=== PATIENT | female | born 1975 | race Asian ===

== ENCOUNTER 2017-03-08 08:33 | Emergency (ER) | payer BC ==
[~2017-03-08] VITALS: Ht 149.9 cm; Wt 61.0 kg
[~2017-03-08 08:33] MED LIST: LOSA25TA12 PO
[2017-03-08] MEDS ORDERED: LOSARTAN POTASSIUM 25 MG TABLET PO ONE (09:30)
[2017-03-08] MEDS ORDERED: ONDANSETRON HCL 4MG/2ML VIAL IV ONE (09:30)
[2017-03-08 09:31] LABS: BASOPHILS % 0.7 % (0.0-2.0); EOSINOPHILS % 0.7 % (0.0-5.0); HEMATOCRIT. 37.9 % (36.0-48.0); HEMOGLOBIN. 12.7 g/dL (12.0-16.0); LYMPHOCYTES % 22.8 % (20.0-50.0); MEAN CORPUSCULAR HEMOGLOBIN 29.3 pg (28.0-32.0); MEAN PLATELET VOLUME 6.7 fl (7.4-10.4); MONOCYTES % 10.5 % (2.0-8.0); NEUTROPHILS % 65.3 % (40.0-76.0); PLATELET 345 x1000/uL (130-400); RED BLOOD CELL COUNT 4.35 mill/uL (4.2-5.4); RED CELL DISTRIBUTION WIDTH 13.5 % (11.6-14.6)
[2017-03-08 09:40] LABS: CARBON DIOXIDE 27 mEq/L (21-32); CHLORIDE 106 mEq/L (98-107)
[2017-03-08 09:43] LABS: PROTHROMBIN TIME 10.5 sec
[2017-03-08 09:47] LABS: CREATINE KINASE 139 IU/L (26-192); CREATINE KINASE MB FRACTION 1.7 ng/mL (0.5-3.6); TROPONIN I < 0.02 ng/mL (0.00-0.04)
[2017-03-08 10:18] LABS: CLARITY URINE BLOODY (CLEAR); COLOR URINE BLOODY (YELLOW); GLUCOSE URINE TRACE (NEGATIVE); KETONES URINE 2+ (NEGATIVE); LEUKOCYTE ESTERASE URINE 3+ (NEGATIVE); NITRITE URINE POSITIVE (NEGATIVE); OCCULT BLOOD URINE 3+ (NEGATIVE); PROTEIN URINE 3+ (NEGATIVE); SPECIFIC GRAVITY URINE 1.026 (1.005-1.030)
[2017-03-08] MEDS ORDERED: CEFTRIAXONE 1 G PREMIX 50 ML IV ONE (11:15)
[2017-03-08 12:07] VITALS: BP 119/74
== END 2017-03-08 13:57 | disposition home or self-care (01) ==
LOC: ER 10:09
DX: I10 Essential (primary) hypertension (principal); N39.0 Urinary tract infection, site not specified; D25.9 Leiomyoma of uterus, unspecified; Z91.14 Patient's other noncompliance with medication regimen; Z90.49 Acquired absence of other specified parts of digestive tract; Z88.6 Allergy status to analgesic agent; Z79.899 Other long term (current) drug therapy; Z86.2 Personal history of diseases of the blood and blood-forming organs and certain disorders involving the immune mechanism
CPT/HCPCS: 36415; 71010; 80053; 81001; 81025; 82550; 82553; 83690; 83880; 84484; 85025; 85610; 93005; 96365; 96375; 99285; J0696; J2405; Z7610

== ENCOUNTER 2017-08-07 01:12 | Inpatient (IN) | payer BC ==
[~2017-08-07] VITALS: Ht 149.9 cm; Wt 69.6 kg
[2017-08-07] MEDS ORDERED: SODIUM CHLORIDE 0.9% 1,000 ML IV ONE (02:03)
[2017-08-07] MEDS ORDERED: ONDANSETRON HCL 4MG/2ML VIAL IV STA (02:03)
[2017-08-07] MEDS ORDERED: KETOROLAC 30MG/ML VIAL IV ONE (02:15)
[2017-08-07 02:25] LABS: HEMATOCRIT. 32.7 % (36.0-48.0); HEMOGLOBIN. 10.9 g/dL (12.0-16.0); MEAN CORPUSCULAR HEMOGLOBIN 28.1 pg (28.0-32.0); MEAN CORPUSCULAR VOLUME 84.6 fL (81.0-99.0); PLATELET 434 x1000/uL (130-400); RED BLOOD CELL COUNT 3.86 mill/uL (4.2-5.4); RED CELL DISTRIBUTION WIDTH 14.4 % (11.6-14.6)
[2017-08-07 02:26] LABS: CHLORIDE 98 mEq/L (98-107)
[2017-08-07 02:31] LABS: CLARITY URINE TURBID (CLEAR); COLOR URINE RED (YELLOW); GLUCOSE URINE NEGATIVE (NEGATIVE); KETONES URINE 2+ (NEGATIVE); LEUKOCYTE ESTERASE URINE 2+ (NEGATIVE); NITRITE URINE POSITIVE (NEGATIVE); OCCULT BLOOD URINE 3+ (NEGATIVE); PROTEIN URINE 2+ (NEGATIVE); SPECIFIC GRAVITY URINE 1.027 (1.005-1.030); UROBILINOGEN URINE 0.2 E.U./dL (0.2-1.0)
[2017-08-07 02:34] LABS: CARBON DIOXIDE 24 mEq/L (21-32)
[2017-08-07 03:12] LABS: PLATELET ESTIMATE INCREASED
[2017-08-07] MEDS ORDERED: METRONIDAZOLE 500 MG PREMIX 100 ML IV ONE (06:30)
[2017-08-07] MEDS ORDERED: LEVOFLOXACIN 750MG PREMIX 150 ML IV ONE (06:30)
[2017-08-07] MEDS ORDERED: CEFTRIAXONE 1 G PREMIX 50 ML IV ONE (06:30)
[2017-08-07 08:00] VITALS: BP 125/80
[2017-08-07] MEDS ORDERED: DIPHENHYDRAMINE 50MG/ML VIAL IV PRN (08:45)
[2017-08-07] MEDS ORDERED: IPRATROPIUM/ALBUTEROL 0.5-3(2.5)MG/3ML NEB INH PRN (08:45)
[2017-08-07] MEDS ORDERED: GUAIFENESIN 200MG/10ML SUGAR FREE UDC PO PRN (08:45)
[2017-08-07] MEDS ORDERED: LORAZEPAM 0.5MG TABLET PO PRN (08:45)
[2017-08-07] MEDS ORDERED: HYDROCODONE/APAP 7.5/325MG 1 TAB TABLET PO PRN (08:45)
[2017-08-07] MEDS ORDERED: DOCUSATE SODIUM 100MG CAPSULE PO PRN (08:45)
[2017-08-07] MEDS ORDERED: HYDROCODONE/ACETAMINOPHEN 5/325MG TABLET PO PRN (08:45)
[2017-08-07] MEDS ORDERED: CLONIDINE 0.1MG TABLET PO PRN (08:45)
[2017-08-07] MEDS ORDERED: MAGNESIUM/ALUMINUM HYDROXIDE/SIMETHICONE 30ML UDC PO PRN (08:45)
[2017-08-07 09:34] VITALS: BP 125/72
[2017-08-07] MEDS ORDERED: AMLO10TA4 PO (09:47)
[2017-08-07] MEDS ORDERED: AMLODIPINE 10MG TABLET PO PRN ×2 (10:00→10:45)
[2017-08-07 10:16] LABS: PHOSPHORUS 2.7 mg/dL (2.5-4.9)
[2017-08-07] MEDS: DEXT 5%/0.45% NACL KCL 10MEQ/L 1,000 ML IV SCH ×2 (11:01→23:30)
[2017-08-07] MEDS: AMLODIPINE 10MG TABLET PO SCH (11:24)
[2017-08-07 12:02] VITALS: BP 125/71
[2017-08-07] MEDS ORDERED: IBUPROFEN 400MG TABLET PO PRN (12:50)
[2017-08-07] MEDS ORDERED: OMEPRAZOLE 20MG CAPSULE EXTENDED RELEASE PO SCH (12:50)
[2017-08-07] MEDS: ONDANSETRON HCL 4MG/2ML VIAL IV PRN ×2 (13:51→19:37)
[2017-08-07 16:14] VITALS: BP 120/67
[2017-08-07 16:15] VITALS: BP 118/73
[2017-08-07] MEDS: AMPICILLIN 1,000 MG in SODIUM CHLORIDE 0.9% 50 ML IV SCH ×2 (16:38→20:51)
[2017-08-07] MEDS: METRONIDAZOLE 500 MG PREMIX 100 ML IV SCH (18:10)
[2017-08-07 20:00] VITALS: BP_SYST 122; BP_SYST 133; BP_DIAS 67; BP_DIAS 70
[2017-08-07] MEDS: ACETAMINOPHEN 650MG SUPP PR PRN (20:29)
[2017-08-07] MEDS: KETOROLAC 30MG/ML VIAL IV PRN (20:30)
[2017-08-07] MEDS: METOCLOPRAMIDE HCL 10MG/2ML VIAL IV PRN (22:06)
[2017-08-08] VITALS (7 sets, daily range): BP systolic 109–144; BP diastolic 49–69
[2017-08-08] MEDS: AMPICILLIN 1,000 MG in SODIUM CHLORIDE 0.9% 50 ML IV SCH ×4 (03:51→21:05)
[2017-08-08] MEDS: CEFTRIAXONE 1 G PREMIX 50 ML IV SCH (06:15)
[2017-08-08] MEDS: METRONIDAZOLE 500 MG PREMIX 100 ML IV SCH ×2 (06:57→18:17)
[2017-08-08] MEDS: ENOXAPARIN 40MG/0.4ML SYR SUBCUT SCH (09:00)
[2017-08-08] MEDS: AMLODIPINE 10MG TABLET PO SCH (09:00)
[2017-08-08] MEDS: PANTOPRAZOLE SODIUM 40 MG/VIAL IV SCH (09:36)
[2017-08-08] MEDS: DEXT 5%/0.45% NACL KCL 10MEQ/L 1,000 ML IV SCH ×2 (09:37→18:18)
[2017-08-08 10:02] LABS: BASOPHILS % 0.2 % (0.0-2.0); EOSINOPHILS % 0.5 % (0.0-5.0); HEMATOCRIT. 26.3 % (36.0-48.0); HEMOGLOBIN. 8.4 g/dL (12.0-16.0); LYMPHOCYTES % 8.5 % (20.0-50.0); MEAN CORPUSCULAR HEMOGLOBIN 27.8 pg (28.0-32.0); MEAN CORPUSCULAR VOLUME 86.6 fL (81.0-99.0); MEAN PLATELET VOLUME 7.5 fl (7.4-10.4); MONOCYTES % 8.5 % (2.0-8.0); NEUTROPHILS % 82.3 % (40.0-76.0); PLATELET 339 x1000/uL (130-400); RED BLOOD CELL COUNT 3.04 mill/uL (4.2-5.4); RED CELL DISTRIBUTION WIDTH 14.1 % (11.6-14.6)
[2017-08-08 11:05] LABS: CHLORIDE 105 mEq/L (98-107)
[2017-08-08 11:20] LABS: CARBON DIOXIDE 24 mEq/L (21-32)
[2017-08-08] MEDS: METOCLOPRAMIDE HCL 10MG/2ML VIAL IV PRN ×2 (12:08→23:19)
[2017-08-08] MEDS: KETOROLAC 30MG/ML VIAL IV PRN ×2 (12:09→23:20)
[2017-08-08 13:11] LABS: CLARITY URINE CLEAR (CLEAR); COLOR URINE ORANGE (YELLOW); GLUCOSE URINE NEGATIVE (NEGATIVE); KETONES URINE NEGATIVE (NEGATIVE); LEUKOCYTE ESTERASE URINE TRACE (NEGATIVE); NITRITE URINE POSITIVE (NEGATIVE); OCCULT BLOOD URINE 1+ (NEGATIVE); PH URINE 5.5 (4.5-8.0); PROTEIN URINE 1+ (NEGATIVE); SPECIFIC GRAVITY URINE 1.033 (1.005-1.030)
[2017-08-08] MEDS: ACETAMINOPHEN 650MG SUPP PR PRN (23:28)
[2017-08-09] VITALS (7 sets, daily range): BP systolic 110–147; BP diastolic 53–82
[2017-08-09] MEDS: AMPICILLIN 1,000 MG in SODIUM CHLORIDE 0.9% 50 ML IV SCH ×4 (03:28→20:58)
[2017-08-09] MEDS: DEXT 5%/0.45% NACL KCL 10MEQ/L 1,000 ML IV SCH ×2 (03:30→12:22)
[2017-08-09] MEDS: CEFTRIAXONE 1 G PREMIX 50 ML IV SCH (05:11)
[2017-08-09] MEDS: METRONIDAZOLE 500 MG PREMIX 100 ML IV SCH ×2 (06:13→17:00)
[2017-08-09 06:32] LABS: BASOPHILS % 0.1 % (0.0-2.0); EOSINOPHILS % 0.8 % (0.0-5.0); HEMOGLOBIN. 8.5 g/dL (12.0-16.0); LYMPHOCYTES % 11.1 % (20.0-50.0); MEAN CORPUSCULAR VOLUME 85.4 fL (81.0-99.0); MEAN PLATELET VOLUME 7.7 fl (7.4-10.4); PLATELET 372 x1000/uL (130-400); RED BLOOD CELL COUNT 3.05 mill/uL (4.2-5.4); RED CELL DISTRIBUTION WIDTH 14.4 % (11.6-14.6)
[2017-08-09 08:18] LABS: CARBON DIOXIDE 25 mEq/L (21-32); CHLORIDE 107 mEq/L (98-107)
[2017-08-09] MEDS: ENOXAPARIN 40MG/0.4ML SYR SUBCUT SCH (08:21)
[2017-08-09] MEDS: PANTOPRAZOLE SODIUM 40 MG/VIAL IV SCH (08:22)
[2017-08-09] MEDS: AMLODIPINE 10MG TABLET PO SCH (08:22)
[2017-08-09] MEDS: ACETAMINOPHEN 325MG TABLET PO PRN (15:18)
[2017-08-09] MEDS: METOCLOPRAMIDE HCL 10MG/2ML VIAL IV PRN (15:19)
[2017-08-09] MEDS: KETOROLAC 30MG/ML VIAL IV PRN (15:19)
[2017-08-09] MEDS: DEXT 5%/0.45% NACL KCL 20MEQ/L 1,000 ML IV SCH (20:58)
[2017-08-10] VITALS (8 sets, daily range): BP systolic 136–157; BP diastolic 74–88
[2017-08-10] MEDS: AMPICILLIN 1,000 MG in SODIUM CHLORIDE 0.9% 50 ML IV SCH ×2 (03:32→09:18)
[2017-08-10] MEDS: ACETAMINOPHEN 325MG TABLET PO PRN ×2 (03:49→12:42)
[2017-08-10] MEDS: CEFTRIAXONE 1 G PREMIX 50 ML IV SCH (05:27)
[2017-08-10] MEDS: METRONIDAZOLE 500 MG PREMIX 100 ML IV SCH ×2 (06:12→19:16)
[2017-08-10 06:46] LABS: BASOPHILS % 0.1 % (0.0-2.0); EOSINOPHILS % 0.9 % (0.0-5.0); HEMATOCRIT. 23.8 % (36.0-48.0); HEMOGLOBIN. 7.9 g/dL (12.0-16.0); LYMPHOCYTES % 10.4 % (20.0-50.0); MEAN CORPUSCULAR HEMOGLOBIN 28.3 pg (28.0-32.0); MEAN CORPUSCULAR VOLUME 85.3 fL (81.0-99.0); MEAN PLATELET VOLUME 7.5 fl (7.4-10.4); MONOCYTES % 8.7 % (2.0-8.0); NEUTROPHILS % 79.9 % (40.0-76.0); PLATELET 350 x1000/uL (130-400); RED BLOOD CELL COUNT 2.79 mill/uL (4.2-5.4); RED CELL DISTRIBUTION WIDTH 14.4 % (11.6-14.6)
[2017-08-10 07:38] LABS: CARBON DIOXIDE 24 mEq/L (21-32); CHLORIDE 104 mEq/L (98-107)
[2017-08-10] MEDS: ENOXAPARIN 40MG/0.4ML SYR SUBCUT SCH (09:00)
[2017-08-10] MEDS: AMLODIPINE 10MG TABLET PO SCH (09:00)
[2017-08-10] MEDS: PANTOPRAZOLE SODIUM 40 MG/VIAL IV SCH (09:18)
[2017-08-10] MEDS: DEXT 5%/0.45% NACL KCL 20MEQ/L 1,000 ML IV SCH ×2 (09:19→21:10)
[2017-08-11] VITALS (8 sets, daily range): BP systolic 120–161; BP diastolic 69–87
[2017-08-11] MEDS: DEXT 5%/0.45% NACL KCL 20MEQ/L 1,000 ML IV SCH (03:00)
[2017-08-11 05:58] LABS: HEMATOCRIT. 28.5 % (36.0-48.0); MEAN CORPUSCULAR HEMOGLOBIN 27.9 pg (28.0-32.0); MEAN CORPUSCULAR VOLUME 84.8 fL (81.0-99.0); PLATELET 422 x1000/uL (130-400); RED BLOOD CELL COUNT 3.36 mill/uL (4.2-5.4); RED CELL DISTRIBUTION WIDTH 14.6 % (11.6-14.6)
[2017-08-11 06:25] LABS: CHLORIDE 103 mEq/L (98-107)
[2017-08-11] MEDS: CEFTRIAXONE 1 G PREMIX 50 ML IV SCH (06:28)
[2017-08-11 06:37] LABS: CARBON DIOXIDE 25 mEq/L (21-32)
[2017-08-11 06:42] LABS: HEMOGLOBIN. 9.4 g/dL (12.0-16.0)
[2017-08-11] MEDS: METRONIDAZOLE 500 MG PREMIX 100 ML IV SCH ×2 (07:10→17:15)
[2017-08-11] MEDS: ENOXAPARIN 40MG/0.4ML SYR SUBCUT SCH (09:00)
[2017-08-11] MEDS: AMLODIPINE 10MG TABLET PO SCH (09:03)
[2017-08-11] MEDS: PANTOPRAZOLE SODIUM 40 MG/VIAL IV SCH (09:03)
[2017-08-11 17:53] LABS: PLATELET ESTIMATE SLIGHTLY INCREASED
[2017-08-11] MEDS: ACETAMINOPHEN 325MG TABLET PO PRN (23:51)
[2017-08-12] VITALS (7 sets, daily range): BP systolic 132–176; BP diastolic 72–92
[2017-08-12 04:16] LABS: CHLAMYDIA TRACHOMATIS NAA Negative (Negative); NEISSERIA GONORRHOEAE NAA Negative (Negative)
[2017-08-12] MEDS: CEFTRIAXONE 1 G PREMIX 50 ML IV SCH (05:38)
[2017-08-12] MEDS: METRONIDAZOLE 500 MG PREMIX 100 ML IV SCH ×2 (06:19→18:21)
[2017-08-12 06:42] LABS: BASOPHILS % 0.3 % (0.0-2.0); EOSINOPHILS % 1.4 % (0.0-5.0); HEMATOCRIT. 29.7 % (36.0-48.0); HEMOGLOBIN. 9.6 g/dL (12.0-16.0); LYMPHOCYTES % 13.8 % (20.0-50.0); MEAN CORPUSCULAR HEMOGLOBIN 27.7 pg (28.0-32.0); MEAN CORPUSCULAR VOLUME 85.4 fL (81.0-99.0); MEAN PLATELET VOLUME 7.5 fl (7.4-10.4); MONOCYTES % 9.9 % (2.0-8.0); NEUTROPHILS % 74.6 % (40.0-76.0); PLATELET 435 x1000/uL (130-400); RED BLOOD CELL COUNT 3.48 mill/uL (4.2-5.4); RED CELL DISTRIBUTION WIDTH 14.8 % (11.6-14.6)
[2017-08-12 07:58] LABS: CARBON DIOXIDE 26 mEq/L (21-32); CHLORIDE 103 mEq/L (98-107); PHOSPHORUS 3.6 mg/dL (2.5-4.9)
[2017-08-12] MEDS: PANTOPRAZOLE SODIUM 40 MG/VIAL IV SCH (09:14)
[2017-08-12] MEDS: AMLODIPINE 10MG TABLET PO SCH (09:17)
[2017-08-12] MEDS ORDERED: POTASSIUM CHLORIDE 20MEQ TABLET SR PO SCH (13:30)
[2017-08-13] VITALS: BP 128/80
[2017-08-13 04:00] VITALS: BP 124/77
[2017-08-13 06:20] LABS: BASOPHILS % 0.4 % (0.0-2.0); EOSINOPHILS % 1.4 % (0.0-5.0); HEMATOCRIT. 32.2 % (36.0-48.0); HEMOGLOBIN. 10.4 g/dL (12.0-16.0); MEAN CORPUSCULAR HEMOGLOBIN 27.8 pg (28.0-32.0); MEAN PLATELET VOLUME 7.3 fl (7.4-10.4); MONOCYTES % 5.9 % (2.0-8.0); NEUTROPHILS % 75.3 % (40.0-76.0); PLATELET 572 x1000/uL (130-400); RED BLOOD CELL COUNT 3.74 mill/uL (4.2-5.4)
[2017-08-13] MEDS: CEFTRIAXONE 1 G PREMIX 50 ML IV SCH (06:26)
[2017-08-13] MEDS: METRONIDAZOLE 500 MG PREMIX 100 ML IV SCH (07:04)
[2017-08-13 07:14] LABS: CHLORIDE 102 mEq/L (98-107)
[2017-08-13 07:21] LABS: CARBON DIOXIDE 26 mEq/L (21-32)
[2017-08-13 08:00] VITALS: BP 142/73
[2017-08-13] MEDS: AMLODIPINE 10MG TABLET PO SCH (09:56)
[2017-08-13] MEDS: PANTOPRAZOLE SODIUM 40 MG/VIAL IV SCH (09:56)
[2017-08-13 12:00] VITALS: BP 135/65
[2017-08-13 16:00] VITALS: BP 127/70
[2017-08-13] MEDS: PIPERACILLIN/TAZOBACTAM 3.375 G in DEXT 5% WATER 100 ML IV SCH ×2 (18:13→23:40)
[2017-08-13 20:00] VITALS: BP 139/74
[2017-08-14] VITALS: BP 132/84
[2017-08-14 04:00] VITALS: BP 139/67
[2017-08-14] MEDS: PIPERACILLIN/TAZOBACTAM 3.375 G in DEXT 5% WATER 100 ML IV SCH ×2 (06:51→12:22)
[2017-08-14 07:34] LABS: BASOPHILS % 0.4 % (0.0-2.0); EOSINOPHILS % 1.3 % (0.0-5.0); HEMATOCRIT. 30.5 % (36.0-48.0); HEMOGLOBIN. 10.1 g/dL (12.0-16.0); LYMPHOCYTES % 13.5 % (20.0-50.0); MEAN CORPUSCULAR HEMOGLOBIN 28.1 pg (28.0-32.0); NEUTROPHILS % 76.8 % (40.0-76.0); PLATELET 570 x1000/uL (130-400); RED BLOOD CELL COUNT 3.59 mill/uL (4.2-5.4); RED CELL DISTRIBUTION WIDTH 14.8 % (11.6-14.6)
[2017-08-14 07:58] VITALS: BP 125/75
[2017-08-14 08:39] LABS: CARBON DIOXIDE 25 mEq/L (21-32); CHLORIDE 104 mEq/L (98-107)
[2017-08-14] MEDS ORDERED: FAMOTIDINE 20MG TABLET PO SCH (09:00)
[2017-08-14] MEDS: AMLODIPINE 10MG TABLET PO SCH (09:22)
[2017-08-14 12:23] VITALS: BP 113/69
[2017-08-14 14:59] VITALS: BP 18/113
== END 2017-08-14 15:35 | disposition home or self-care (01) | DRG 872 ==
LOC: ER 01:12 → 5WST 06:26 → ENRESERV 07:46
PROVIDERS: ADMIT Family Medicine Adult Medicine; ATTEND Family Medicine Adult Medicine
PROC: 30233N1 Transfusion of Nonautologous Red Blood Cells into Peripheral Vein, Percutaneous Approach (ICD-10-PCS; principal; 2017-08-10)
DX: A41.9 Sepsis, unspecified organism (principal); D68.59 Other primary thrombophilia; K76.0 Fatty (change of) liver, not elsewhere classified; N39.0 Urinary tract infection, site not specified; D64.9 Anemia, unspecified; N92.0 Excessive and frequent menstruation with regular cycle; E87.6 Hypokalemia; N80.9 Endometriosis, unspecified; I10 Essential (primary) hypertension; N92.1 Excessive and frequent menstruation with irregular cycle; B96.20 Unspecified Escherichia coli [E. coli] as the cause of diseases classified elsewhere; E28.2 Polycystic ovarian syndrome; N70.93 Salpingitis and oophoritis, unspecified; D25.9 Leiomyoma of uterus, unspecified; N70.11 Chronic salpingitis; Z88.8 Allergy status to other drugs, medicaments and biological substances; Z90.49 Acquired absence of other specified parts of digestive tract
CPT/HCPCS: 36415; 74177; 76830; 76856; 80048; 80053; 80076; 81001; 81025; 83605; 83690; 83735; 84100; 84443; 85007; 85025; 85027; 86850; 86900; 86920; 87040; 87077; 87086; 87186; 87491; 87591; 96361; 96365; 96366; 96375; 99285; C9113; J0290; J0696; J1650; J1885; J1956; J2405; J2543; J2765; J3490; J7030; J7050; J7060; P9016; Q9967

== ENCOUNTER → 2017-09-01 | Outpatient (CLI) | payer BC ==
[~2017-09-01] MED LIST changes: +AMLO10TA4 PO; -LOSA25TA12 PO
[2017-09-01 13:29] LABS: BASOPHILS % 0.8 % (0.0-2.0); EOSINOPHILS % 0.9 % (0.0-5.0); HEMATOCRIT. 30.8 % (36.0-48.0); LYMPHOCYTES % 26.5 % (20.0-50.0); MEAN CORPUSCULAR HEMOGLOBIN 26.8 pg (28.0-32.0); MEAN CORPUSCULAR VOLUME 82.1 fL (81.0-99.0); MEAN PLATELET VOLUME 6.4 fl (7.4-10.4); MONOCYTES % 7.6 % (2.0-8.0); NEUTROPHILS % 64.2 % (40.0-76.0); PLATELET 446 x1000/uL (130-400); RED BLOOD CELL COUNT 3.75 mill/uL (4.2-5.4)
[2017-09-01 14:10] LABS: CARBON DIOXIDE 28 mEq/L (21-32); CHLORIDE 105 mEq/L (98-107); HDL CHOLESTEROL 25 mg/dL (40-59); LDL CHOLESTEROL 74 mg/dL (5-100); T4 FREE 1.08 ng/dL (0.76-1.46); TOTAL IRON BINDING CAPACITY 309 ug/dL (250-450)
== END | disposition home or self-care (01) ==
LOC: LAB 13:01
PROVIDERS: ATTEND Family Medicine Adult Medicine
DX: D64.9 Anemia, unspecified (principal); Z79.899 Other long term (current) drug therapy
CPT/HCPCS: 36415; 80053; 80061; 82306; 82607; 82728; 82746; 83540; 83550; 84439; 84481; 85025

== ENCOUNTER → 2017-09-02 | Outpatient (CLI) | payer BC ==
[~2017-09-02] MED LIST changes: +IOHEXOL-300 100 ML BOTTLE ONE
== END | disposition home or self-care (01) ==
LOC: CT 08:26
PROVIDERS: ATTEND Family Medicine Adult Medicine
DX: K76.0 Fatty (change of) liver, not elsewhere classified (principal); Z90.49 Acquired absence of other specified parts of digestive tract
CPT/HCPCS: 74177; Q9967

== ENCOUNTER 2017-10-12 08:58 | Emergency (ER) | payer BC ==
[~2017-10-12] VITALS: Ht 149.9 cm; Wt 64.0 kg
[~2017-10-12 08:58] MED LIST changes: -IOHEXOL-300 100 ML BOTTLE ONE
[2017-10-12 15:24] LABS: BASOPHILS % 0.5 % (0.0-2.0); EOSINOPHILS % 1.1 % (0.0-5.0); HEMATOCRIT. 33.1 % (36.0-48.0); HEMOGLOBIN. 10.8 g/dL (12.0-16.0); LYMPHOCYTES % 27.5 % (20.0-50.0); MEAN CORPUSCULAR HEMOGLOBIN 26.1 pg (28.0-32.0); MEAN CORPUSCULAR VOLUME 80.2 fL (81.0-99.0); MEAN PLATELET VOLUME 6.6 fl (7.4-10.4); MONOCYTES % 8.2 % (2.0-8.0); NEUTROPHILS % 62.7 % (40.0-76.0); PLATELET 434 x1000/uL (130-400); RED BLOOD CELL COUNT 4.13 mill/uL (4.2-5.4); RED CELL DISTRIBUTION WIDTH 16.6 % (11.6-14.6)
[2017-10-12 15:27] LABS: PROTHROMBIN TIME 10.7 sec (9.4-11.6)
[2017-10-12 15:49] LABS: CARBON DIOXIDE 25 mEq/L (21-32); CHLORIDE 104 mEq/L (98-107)
[2017-10-12 16:00] VITALS: BP 140/51
== END 2017-10-12 16:37 | disposition home or self-care (01) ==
LOC: ER 08:58
DX: R04.0 Epistaxis (principal); I10 Essential (primary) hypertension; Z88.5 Allergy status to narcotic agent
CPT/HCPCS: 36415; 80053; 85025; 85610; 99284

== ENCOUNTER 2017-12-07 01:53 | Inpatient (IN) | payer BC ==
[~2017-12-07] VITALS: Ht 122.2 cm; Wt 66.7 kg
[2017-12-07] MEDS ORDERED: ONDANSETRON HCL 4MG/2ML VIAL IV STA (06:49)
[2017-12-07] MEDS ORDERED: SODIUM CHLORIDE 0.9% 1000ML BAG (SEPSIS BOLUS) IV ONE (07:00)
[2017-12-07] MEDS ORDERED: KETOROLAC 30MG/ML VIAL IV ONE (07:00)
[2017-12-07] MEDS ORDERED: CEFTRIAXONE 1 G PREMIX 50 ML IV ONE (07:00)
[2017-12-07 07:07] LABS: CLARITY URINE CLEAR (CLEAR); COLOR URINE DARK YELLOW (YELLOW); KETONES URINE 1+ (NEGATIVE); LEUKOCYTE ESTERASE URINE NEGATIVE (NEGATIVE); NITRITE URINE NEGATIVE (NEGATIVE); OCCULT BLOOD URINE 3+ (NEGATIVE); PH URINE 5.5 (4.5-8.0); PROTEIN URINE 2+ (NEGATIVE); SPECIFIC GRAVITY URINE 1.024 (1.005-1.030)
[2017-12-07 07:37] LABS: HEMATOCRIT. 27.5 % (36.0-48.0); HEMOGLOBIN. 8.9 g/dL (12.0-16.0); MEAN CORPUSCULAR HEMOGLOBIN 25.6 pg (28.0-32.0); MEAN CORPUSCULAR VOLUME 79.5 fL (81.0-99.0); MEAN PLATELET VOLUME 7.1 fl (7.4-10.4); PLATELET 488 x1000/uL (130-400); RED BLOOD CELL COUNT 3.46 mill/uL (4.2-5.4); RED CELL DISTRIBUTION WIDTH 16.7 % (11.6-14.6)
[2017-12-07 07:40] LABS: CHLORIDE 98 mEq/L (98-107)
[2017-12-07 07:45] LABS: *AMPHETAMINES SCREEN URINE NEGATIVE (NEGATIVE); *BARBITURATES SCREEN URINE NEGATIVE (NEGATIVE); *BENZODIAZEPINES SCREEN URINE NEGATIVE (NEGATIVE); *COCAINE SCREEN URINE NEGATIVE (NEGATIVE); CANNABINOID URINE SCREEN NEGATIVE (NEGATIVE); METHADONE URINE SCREEN NEGATIVE (NEGATIVE); OPIATES URINE SCREEN NEGATIVE (NEGATIVE); PHENCYCLIDINE URINE SCREEN NEGATIVE (NEGATIVE)
[2017-12-07 07:48] LABS: INR 1.1; PARTIAL THROMBOPLASTIN TIME 31.7 sec (23.4-31.0); PROTHROMBIN TIME 11.2 sec (9.4-11.6)
[2017-12-07 07:49] LABS: HCG SCREEN NEGATIVE
[2017-12-07] MEDS ORDERED: LEVOFLOXACIN 500MG PREMIX 100 ML IV ONE (08:15)
[2017-12-07] MEDS ORDERED: POTASSIUM CHLORIDE 20MEQ TABLET SR PO ONE ×2 (08:15→11:30)
[2017-12-07 08:17] LABS: PLATELET ESTIMATE INCREASED
[2017-12-07] MEDS ORDERED: DEXT 5%/0.45% NACL 1000ML 1,000 ML IV SCH (16:03)
[2017-12-07] MEDS ORDERED: DOCUSATE SODIUM 100MG CAPSULE PO PRN ×2 (16:15→17:15)
[2017-12-07] MEDS ORDERED: MAGNESIUM/ALUMINUM HYDROXIDE/SIMETHICONE 30ML UDC PO PRN ×2 (16:15→17:15)
[2017-12-07] MEDS ORDERED: CLONIDINE 0.1MG TABLET PO PRN ×2 (16:15→17:15)
[2017-12-07] MEDS ORDERED: IPRATROPIUM/ALBUTEROL 0.5-3(2.5)MG/3ML NEB INH PRN ×2 (16:15→17:15)
[2017-12-07] MEDS ORDERED: LORAZEPAM 0.5MG TABLET PO PRN ×2 (16:15→17:15)
[2017-12-07] MEDS ORDERED: DIPHENHYDRAMINE 50MG/ML VIAL IV PRN (16:15)
[2017-12-07] MEDS ORDERED: ONDANSETRON HCL 4MG/2ML VIAL IV PRN ×2 (16:15→17:15)
[2017-12-07] MEDS ORDERED: GUAIFENESIN 200MG/10ML SUGAR FREE UDC PO PRN ×2 (16:15→17:15)
[2017-12-07 17:40] VITALS: BP 145/68
[2017-12-07 17:58] VITALS: BP 145/68
[2017-12-07 20:00] VITALS: BP 127/64
[2017-12-07] MEDS: PIPERACILLIN/TAZ 3.375G PREMIX 50 ML IV SCH (21:27)
[2017-12-07] MEDS ORDERED: POTASSIUM CHLORIDE 20MEQ TABLET SR PO NR (22:36)
[2017-12-07] MEDS ORDERED: KETOROLAC 15MG/ML VIAL IV NR (23:45)
[2017-12-07] MEDS: DIPHENHYDRAMINE 50MG/ML VIAL IV PRN (23:48)
[2017-12-08] VITALS: BP 113/80
[2017-12-08] MEDS: PIPERACILLIN/TAZ 3.375G PREMIX 50 ML IV SCH ×4 (03:41→21:03)
[2017-12-08] MEDS: DEXT 5%/0.45% NACL 1000ML 1,000 ML IV SCH ×3 (03:42→21:04)
[2017-12-08 04:00] VITALS: BP 107/64
[2017-12-08 07:12] LABS: HEMATOCRIT. 25.8 % (36.0-48.0); HEMOGLOBIN. 8.2 g/dL (12.0-16.0); MEAN CORPUSCULAR HEMOGLOBIN 25.5 pg (28.0-32.0); MEAN CORPUSCULAR VOLUME 80.3 fL (81.0-99.0); MEAN PLATELET VOLUME 7.2 fl (7.4-10.4); PLATELET 445 x1000/uL (130-400); RED BLOOD CELL COUNT 3.21 mill/uL (4.2-5.4); RED CELL DISTRIBUTION WIDTH 16.6 % (11.6-14.6)
[2017-12-08 07:23] LABS: CHLORIDE 106 mEq/L (98-107)
[2017-12-08 08:00] VITALS: BP 116/65
[2017-12-08] MEDS ORDERED: POTASSIUM CHLORIDE 20MEQ TABLET SR PO NR (08:45)
[2017-12-08] MEDS: ACETAMINOPHEN 325MG TABLET PO PRN (08:59)
[2017-12-08 12:00] VITALS: BP 121/69
[2017-12-08 13:35] LABS: TOTAL IRON BINDING CAPACITY 226 ug/dL (250-450)
[2017-12-08 14:26] LABS: PLATELET ESTIMATE INCREASED
[2017-12-08 16:00] VITALS: BP 135/63
[2017-12-08] MEDS: KETOROLAC 15MG/ML VIAL IV PRN (16:04)
[2017-12-08] MEDS: OMEPRAZOLE 20MG CAPSULE EXTENDED RELEASE PO SCH (16:04)
[2017-12-08 20:00] VITALS: BP 132/74
[2017-12-09] VITALS: BP 120/70
[2017-12-09] MEDS: KETOROLAC 15MG/ML VIAL IV PRN ×2 (00:14→12:26)
[2017-12-09] MEDS: DIPHENHYDRAMINE 50MG/ML VIAL IV PRN ×2 (00:17→23:58)
[2017-12-09] MEDS: PIPERACILLIN/TAZ 3.375G PREMIX 50 ML IV SCH ×4 (03:03→22:05)
[2017-12-09 04:00] VITALS: BP 121/55
[2017-12-09] MEDS: DEXT 5%/0.45% NACL 1000ML 1,000 ML IV SCH ×3 (04:36→20:09)
[2017-12-09] MEDS: OMEPRAZOLE 20MG CAPSULE EXTENDED RELEASE PO SCH (06:27)
[2017-12-09 07:11] LABS: BASOPHILS % 0.1 % (0.0-2.0); EOSINOPHILS % 0.6 % (0.0-5.0); HEMATOCRIT. 25.2 % (36.0-48.0); HEMOGLOBIN. 8.1 g/dL (12.0-16.0); LYMPHOCYTES % 11.9 % (20.0-50.0); MEAN CORPUSCULAR HEMOGLOBIN 25.7 pg (28.0-32.0); MEAN CORPUSCULAR VOLUME 79.8 fL (81.0-99.0); MEAN PLATELET VOLUME 7.2 fl (7.4-10.4); MONOCYTES % 8.5 % (2.0-8.0); NEUTROPHILS % 78.9 % (40.0-76.0); PLATELET 478 x1000/uL (130-400); RED BLOOD CELL COUNT 3.16 mill/uL (4.2-5.4); RED CELL DISTRIBUTION WIDTH 16.4 % (11.6-14.6)
[2017-12-09 08:00] VITALS: BP 148/79
[2017-12-09 08:42] LABS: CHLORIDE 105 mEq/L (98-107)
[2017-12-09 08:55] LABS: PHOSPHORUS 3.9 mg/dL (2.5-4.9)
[2017-12-09 12:00] VITALS: BP 150/70
[2017-12-09] MEDS: ACETAMINOPHEN 325MG TABLET PO PRN (12:32)
[2017-12-09 16:00] VITALS: BP 136/74
[2017-12-09] MEDS ORDERED: POTASSIUM CHLORIDE 20MEQ TABLET SR PO NR (18:30)
[2017-12-09 20:00] VITALS: BP 156/85
[2017-12-10] VITALS: BP 169/73
[2017-12-10] MEDS: KETOROLAC 15MG/ML VIAL IV PRN ×2 (00:01→12:40)
[2017-12-10 04:00] VITALS: BP 142/67
[2017-12-10] MEDS: PIPERACILLIN/TAZ 3.375G PREMIX 50 ML IV SCH ×4 (05:24→21:49)
[2017-12-10] MEDS: DEXT 5%/0.45% NACL 1000ML 1,000 ML IV SCH ×3 (05:25→19:54)
[2017-12-10 07:09] LABS: BASOPHILS % 0.3 % (0.0-2.0); EOSINOPHILS % 0.8 % (0.0-5.0); HEMATOCRIT. 24.2 % (36.0-48.0); LYMPHOCYTES % 14.2 % (20.0-50.0); MEAN CORPUSCULAR HEMOGLOBIN 26.3 pg (28.0-32.0); MEAN PLATELET VOLUME 7.2 fl (7.4-10.4); MONOCYTES % 7.9 % (2.0-8.0); NEUTROPHILS % 76.8 % (40.0-76.0); PLATELET 508 x1000/uL (130-400); RED BLOOD CELL COUNT 3.03 mill/uL (4.2-5.4); RED CELL DISTRIBUTION WIDTH 16.6 % (11.6-14.6)
[2017-12-10 07:30] LABS: CHLORIDE 105 mEq/L (98-107)
[2017-12-10 08:00] VITALS: BP 155/182
[2017-12-10] MEDS: FAMOTIDINE 20MG TABLET PO SCH (09:26)
[2017-12-10] MEDS: FERROUS SULFATE 325MG TABLET PO SCH ×3 (09:26→17:29)
[2017-12-10 12:00] VITALS: BP 151/75
[2017-12-10] MEDS ORDERED: IOHEXOL-300 100 ML BOTTLE ONE (14:46)
[2017-12-10 16:00] VITALS: BP 146/67
[2017-12-10 20:00] VITALS: BP 145/86
[2017-12-11] VITALS: BP 151/75
[2017-12-11] MEDS: KETOROLAC 15MG/ML VIAL IV PRN (02:41)
[2017-12-11] MEDS: DIPHENHYDRAMINE 50MG/ML VIAL IV PRN (02:41)
[2017-12-11 04:00] VITALS: BP 155/82
[2017-12-11] MEDS: PIPERACILLIN/TAZ 3.375G PREMIX 50 ML IV SCH ×4 (04:07→21:24)
[2017-12-11] MEDS: DEXT 5%/0.45% NACL 1000ML 1,000 ML IV SCH (07:04)
[2017-12-11 07:10] LABS: HEMOGLOBIN. 9.4 g/dL (12.0-16.0); MEAN CORPUSCULAR HEMOGLOBIN 26.6 pg (28.0-32.0); MEAN PLATELET VOLUME 7.8 fl (7.4-10.4); PLATELET 495 x1000/uL (130-400); RED BLOOD CELL COUNT 3.54 mill/uL (4.2-5.4)
[2017-12-11 07:55] LABS: CHLORIDE 102 mEq/L (98-107)
[2017-12-11 08:00] VITALS: BP 151/91
[2017-12-11] MEDS: FERROUS SULFATE 325MG TABLET PO SCH ×3 (08:10→18:55)
[2017-12-11] MEDS: FAMOTIDINE 20MG TABLET PO SCH (08:15)
[2017-12-11 12:00] VITALS: BP 140/86
[2017-12-11 16:00] VITALS: BP 154/85
[2017-12-11 18:28] LABS: PLATELET ESTIMATE INCREASED
[2017-12-11 20:00] VITALS: BP 163/64
[2017-12-11] MEDS ORDERED: POTASSIUM CHLORIDE 20MEQ TABLET SR PO NR (20:00)
[2017-12-12] VITALS: BP 165/79
[2017-12-12 04:00] VITALS: BP 90/55
[2017-12-12] MEDS: PIPERACILLIN/TAZ 3.375G PREMIX 50 ML IV SCH ×2 (04:55→10:36)
[2017-12-12 06:11] LABS: BASOPHILS % 0.2 % (0.0-2.0); EOSINOPHILS % 0.7 % (0.0-5.0); LYMPHOCYTES % 11.2 % (20.0-50.0); MEAN CORPUSCULAR VOLUME 80.6 fL (81.0-99.0); MONOCYTES % 6.1 % (2.0-8.0); NEUTROPHILS % 81.8 % (40.0-76.0); PLATELET 605 x1000/uL (130-400); RED BLOOD CELL COUNT 3.47 mill/uL (4.2-5.4)
[2017-12-12 06:48] LABS: CHLORIDE 105 mEq/L (98-107)
[2017-12-12 08:00] VITALS: BP 153/86
[2017-12-12] MEDS: FAMOTIDINE 20MG TABLET PO SCH (08:38)
[2017-12-12] MEDS: FERROUS SULFATE 325MG TABLET PO SCH ×2 (08:38→13:55)
[2017-12-12] MEDS ORDERED: POTASSIUM CHLORIDE 20MEQ TABLET SR PO NR (11:00)
[2017-12-12 12:00] VITALS: BP 164/84
[2017-12-12 13:19] VITALS: BP 164/84
== END 2017-12-12 14:45 | disposition home or self-care (01) | DRG 872 ==
LOC: ER 04:19 → 6EST 09:03 → SUPCPDRO 13:33 → ENRESERV 16:14 → ER 17:05
PROVIDERS: ADMIT Family Medicine Adult Medicine; ATTEND Family Medicine Adult Medicine
DX: A41.9 Sepsis, unspecified organism (principal); N10 Acute pyelonephritis; N39.0 Urinary tract infection, site not specified; D25.9 Leiomyoma of uterus, unspecified; I10 Essential (primary) hypertension; E87.6 Hypokalemia; D50.9 Iron deficiency anemia, unspecified; N70.11 Chronic salpingitis; E28.2 Polycystic ovarian syndrome; Z91.19 Patient's noncompliance with other medical treatment and regimen; Z87.440 Personal history of urinary (tract) infections; Z90.49 Acquired absence of other specified parts of digestive tract; Z88.5 Allergy status to narcotic agent
CPT/HCPCS: 36415; 74176; 74177; 76830; 76856; 80048; 80053; 80076; 80305; 81003; 83540; 83550; 83605; 83690; 83735; 84100; 84703; 85025; 85610; 85730; 87040; 87086; 96365; 96366; 96368; 96375; 99291; C1893; J0696; J1200; J1885; J1956; J2405; J2543; J3490; J7030; J7050; Q9967

== ENCOUNTER 2018-09-03 09:50 | Inpatient (IN) | payer BC ==
[~2018-09-03] VITALS: Ht 149.9 cm; Wt 70.8 kg
[2018-09-03] MEDS ORDERED: ACETAMINOPHEN 325MG TABLET PO STA (10:40)
[2018-09-03] MEDS ORDERED: SODIUM CHLORIDE 0.9% 1000ML BAG (SEPSIS BOLUS) IV ONE (10:45)
[2018-09-03] MEDS ORDERED: ONDANSETRON HCL 4MG/2ML INJ IV ONE (10:45)
[2018-09-03] MEDS ORDERED: PIPERACILLIN/TAZ 3.375G PREMIX 50 ML IV ONE (11:00)
[2018-09-03] MEDS ORDERED: LEVOFLOXACIN 750MG PREMIX 150 ML IV ONE (11:00)
[2018-09-03 11:18] LABS: HEMATOCRIT. 34.8 % (36.0-48.0); HEMOGLOBIN. 11.6 g/dL (12.0-16.0); MEAN CORPUSCULAR HEMOGLOBIN 30.1 pg (28.0-32.0); MEAN CORPUSCULAR VOLUME 90.3 fL (81.0-99.0); MEAN PLATELET VOLUME 7.6 fl (7.4-10.4); PLATELET 339 x1000/uL (130-400); RED BLOOD CELL COUNT 3.85 mill/uL (4.2-5.4); RED CELL DISTRIBUTION WIDTH 13.8 % (11.6-14.6)
[2018-09-03 11:21] LABS: CHLORIDE 97 mEq/L (98-107)
[2018-09-03 11:28] LABS: PROTHROMBIN TIME 10.4 sec (9.1-11.1)
[2018-09-03 11:30] LABS: CLARITY URINE TURBID (CLEAR); COLOR URINE RED (YELLOW); KETONES URINE 2+ (NEGATIVE); LEUKOCYTE ESTERASE URINE 3+ (NEGATIVE); NITRITE URINE POSITIVE (NEGATIVE); OCCULT BLOOD URINE 3+ (NEGATIVE); PROTEIN URINE 3+ (NEGATIVE); SPECIFIC GRAVITY URINE 1.034 (1.005-1.030)
[2018-09-03 11:34] LABS: HCG SCREEN NEGATIVE
[2018-09-03 11:37] LABS: PLATELET ESTIMATE NORMAL
[2018-09-03] MEDS ORDERED: IOHEXOL-300 100 ML BOTTLE ONE (12:29)
[2018-09-03] MEDS ORDERED: CLONIDINE 0.1MG TABLET PO PRN (13:30)
[2018-09-03 17:45] VITALS: BP 133/88
[2018-09-03 18:00] VITALS: BP 149/73
[2018-09-03] MEDS ORDERED: POTASSIUM CHLORIDE 20MEQ TABLET SR PO PRN (18:00)
[2018-09-03] MEDS: ACETAMINOPHEN 325MG TABLET PO PRN (18:30)
[2018-09-03] MEDS: SODIUM CHLORIDE 0.9% 1,000 ML IV SCH (18:31)
[2018-09-03] MEDS: ONDANSETRON HCL 4MG/2ML INJ IV PRN (18:34)
[2018-09-03 20:00] VITALS: BP 122/67
[2018-09-03] MEDS: PIPERACILLIN/TAZ 3.375G PREMIX 50 ML IV SCH (20:23)
[2018-09-03] MEDS: KETOROLAC 15MG/ML VIAL IV PRN (20:23)
[2018-09-03] MEDS: DOXYCYCLINE 100 MG in DEXT 5% WATER 100 ML IV SCH (21:10)
[2018-09-03 22:00] VITALS: BP 122/74
[2018-09-04] VITALS (12 sets, daily range): BP systolic 107–157; BP diastolic 58–89
[2018-09-04] MEDS: PIPERACILLIN/TAZ 3.375G PREMIX 50 ML IV SCH ×4 (03:19→21:54)
[2018-09-04] MEDS: SODIUM CHLORIDE 0.9% 1,000 ML IV SCH ×2 (05:22→09:45)
[2018-09-04] MEDS: ACETAMINOPHEN 325MG TABLET PO PRN ×4 (05:23→21:54)
[2018-09-04 06:50] LABS: HEMOGLOBIN. 9.7 g/dL (12.0-16.0); MEAN CORPUSCULAR HEMOGLOBIN 30.1 pg (28.0-32.0); MEAN CORPUSCULAR VOLUME 90.3 fL (81.0-99.0); MEAN PLATELET VOLUME 7.8 fl (7.4-10.4); PLATELET 232 x1000/uL (130-400); RED BLOOD CELL COUNT 3.21 mill/uL (4.2-5.4); RED CELL DISTRIBUTION WIDTH 14.1 % (11.6-14.6)
[2018-09-04 08:42] LABS: PLATELET ESTIMATE NORMAL
[2018-09-04] MEDS: ONDANSETRON HCL 4MG/2ML INJ IV PRN ×2 (09:40→19:54)
[2018-09-04] MEDS: DOXYCYCLINE 100 MG in DEXT 5% WATER 100 ML IV SCH ×2 (09:45→22:56)
[2018-09-04 11:16] LABS: CHLORIDE 106 mEq/L (98-107)
[2018-09-04] MEDS: DIPHENHYDRAMINE 50MG/ML VIAL IM PRN ×3 (12:29→22:51)
[2018-09-04] MEDS: KETOROLAC 15MG/ML VIAL IV PRN ×2 (12:30→19:55)
[2018-09-04] MEDS ORDERED: POTASSIUM CHLORIDE INJ 40 MEQ in DEXT 5% WATER 250 ML IV NR (13:30)
[2018-09-05] VITALS (11 sets, daily range): BP systolic 120–156; BP diastolic 62–98
[2018-09-05] MEDS: SODIUM CHLORIDE 0.9% 1,000 ML IV SCH (02:00)
[2018-09-05] MEDS: PIPERACILLIN/TAZ 3.375G PREMIX 50 ML IV SCH ×4 (03:40→23:36)
[2018-09-05] MEDS: KETOROLAC 15MG/ML VIAL IV PRN ×3 (04:06→19:48)
[2018-09-05] MEDS: DIPHENHYDRAMINE 50MG/ML VIAL IM PRN ×3 (05:17→19:47)
[2018-09-05] MEDS: DOXYCYCLINE 100 MG in DEXT 5% WATER 100 ML IV SCH (09:01)
[2018-09-05 11:20] LABS: HEMATOCRIT. 31.2 % (36.0-48.0); HEMOGLOBIN. 10.3 g/dL (12.0-16.0); MEAN CORPUSCULAR HEMOGLOBIN 30.1 pg (28.0-32.0); MEAN CORPUSCULAR VOLUME 90.9 fL (81.0-99.0); MEAN PLATELET VOLUME 8.2 fl (7.4-10.4); PLATELET 279 x1000/uL (130-400); RED BLOOD CELL COUNT 3.43 mill/uL (4.2-5.4)
[2018-09-05 12:00] LABS: CHLORIDE 107 mEq/L (98-107)
[2018-09-05] MEDS: ACETAMINOPHEN 325MG TABLET PO PRN ×2 (12:02→20:53)
[2018-09-05 13:29] LABS: PLATELET ESTIMATE NORMAL
[2018-09-05] MEDS ORDERED: MAGNESIUM 2 G PREMIX 50 ML IV NR (13:30)
[2018-09-05] MEDS ORDERED: POTASSIUM CHLORIDE INJ 40 MEQ in DEXT 5% WATER 250 ML IV NR (14:00)
[2018-09-06] VITALS (11 sets, daily range): BP systolic 137–158; BP diastolic 59–92
[2018-09-06] MEDS: PIPERACILLIN/TAZ 3.375G PREMIX 50 ML IV SCH ×4 (03:20→21:06)
[2018-09-06] MEDS: SODIUM CHLORIDE 0.9% 1,000 ML IV SCH ×3 (03:21→15:00)
[2018-09-06] MEDS: DIPHENHYDRAMINE 50MG/ML VIAL IM PRN ×2 (08:26→21:50)
[2018-09-06] MEDS: ACETAMINOPHEN 325MG TABLET PO PRN (08:26)
[2018-09-06] MEDS: KETOROLAC 15MG/ML VIAL IV PRN ×2 (08:27→21:49)
[2018-09-06 12:48] LABS: HEMATOCRIT. 29.2 % (36.0-48.0); HEMOGLOBIN. 9.7 g/dL (12.0-16.0); MEAN CORPUSCULAR HEMOGLOBIN 30.2 pg (28.0-32.0); MEAN CORPUSCULAR VOLUME 90.5 fL (81.0-99.0); MEAN PLATELET VOLUME 8.4 fl (7.4-10.4); PLATELET 324 x1000/uL (130-400); RED BLOOD CELL COUNT 3.22 mill/uL (4.2-5.4); RED CELL DISTRIBUTION WIDTH 14.2 % (11.6-14.6)
[2018-09-06 12:58] LABS: CHLORIDE 104 mEq/L (98-107)
[2018-09-06 13:48] LABS: PLATELET ESTIMATE NORMAL
[2018-09-06] MEDS: AMLODIPINE 10MG TABLET PO SCH (15:00)
[2018-09-06] MEDS ORDERED: POTASSIUM CHLORIDE INJ 40 MEQ in DEXT 5% WATER 250 ML IV NR (15:30)
[2018-09-07] VITALS (10 sets, daily range): BP systolic 113–158; BP diastolic 52–93
[2018-09-07] MEDS: PIPERACILLIN/TAZ 3.375G PREMIX 50 ML IV SCH ×4 (04:36→22:09)
[2018-09-07] MEDS: SODIUM CHLORIDE 0.9% 1,000 ML IV SCH ×2 (04:37→10:30)
[2018-09-07 06:26] LABS: HEMATOCRIT. 31.2 % (36.0-48.0); HEMOGLOBIN. 10.3 g/dL (12.0-16.0); MEAN CORPUSCULAR HEMOGLOBIN 29.7 pg (28.0-32.0); MEAN CORPUSCULAR VOLUME 89.8 fL (81.0-99.0); MEAN PLATELET VOLUME 8.3 fl (7.4-10.4); PLATELET 386 x1000/uL (130-400); RED BLOOD CELL COUNT 3.47 mill/uL (4.2-5.4)
[2018-09-07 07:44] LABS: CHLORIDE 102 mEq/L (98-107)
[2018-09-07] MEDS: AMLODIPINE 10MG TABLET PO SCH (10:16)
[2018-09-07 14:28] LABS: PLATELET ESTIMATE NORMAL
[2018-09-07] MEDS ORDERED: POTASSIUM CHLORIDE INJ 40 MEQ in DEXT 5% WATER 250 ML IV NR (14:30)
[2018-09-07] MEDS: KETOROLAC 15MG/ML VIAL IV PRN (20:11)
[2018-09-07] MEDS: DIPHENHYDRAMINE 50MG/ML VIAL IM PRN (20:12)
[2018-09-08] VITALS (12 sets, daily range): BP systolic 112–137; BP diastolic 59–89
[2018-09-08] MEDS: SODIUM CHLORIDE 0.9% 1,000 ML IV SCH ×3 (00:09→22:00)
[2018-09-08] MEDS: PIPERACILLIN/TAZ 3.375G PREMIX 50 ML IV SCH ×4 (04:26→22:16)
[2018-09-08 07:03] LABS: HEMATOCRIT. 32.2 % (36.0-48.0); HEMOGLOBIN. 10.9 g/dL (12.0-16.0); MEAN CORPUSCULAR HEMOGLOBIN 30.2 pg (28.0-32.0); MEAN CORPUSCULAR VOLUME 89.3 fL (81.0-99.0); MEAN PLATELET VOLUME 7.7 fl (7.4-10.4); PLATELET 468 x1000/uL (130-400); RED BLOOD CELL COUNT 3.61 mill/uL (4.2-5.4); RED CELL DISTRIBUTION WIDTH 13.8 % (11.6-14.6)
[2018-09-08 07:11] LABS: CHLORIDE 103 mEq/L (98-107)
[2018-09-08] MEDS: AMLODIPINE 10MG TABLET PO SCH (09:12)
[2018-09-08 10:04] LABS: PLATELET ESTIMATE SLIGHTLY INCREASED
[2018-09-08] MEDS ORDERED: POTASSIUM CHLORIDE INJ 40 MEQ in DEXT 5% WATER 250 ML IV NR (11:30)
[2018-09-08] MEDS ORDERED: MAGNESIUM 2 G PREMIX 50 ML IV NR (11:30)
[2018-09-08] MEDS: KETOROLAC 15MG/ML VIAL IV PRN (14:30)
[2018-09-08] MEDS: DIPHENHYDRAMINE 50MG/ML VIAL IV PRN ×2 (14:43→21:22)
[2018-09-08] MEDS ORDERED: DIPHENHYDRAMINE 50MG/ML VIAL IV PRN (17:45)
[2018-09-08] MEDS ORDERED: KETOROLAC 15MG/ML VIAL IV PRN (22:15)
[2018-09-09] VITALS (7 sets, daily range): BP systolic 118–133; BP diastolic 67–84
[2018-09-09] MEDS: PIPERACILLIN/TAZ 3.375G PREMIX 50 ML IV SCH ×3 (04:17→16:00)
[2018-09-09] MEDS: DIPHENHYDRAMINE 50MG/ML VIAL IV PRN (04:32)
[2018-09-09] MEDS: AMLODIPINE 10MG TABLET PO SCH (09:34)
[2018-09-09] MEDS: SODIUM CHLORIDE 0.9% 1,000 ML IV SCH ×2 (09:34→10:00)
== END 2018-09-09 17:05 | disposition home or self-care (01) | DRG 872 ==
LOC: ER 09:50 → 5EST 12:36 → EDBEDREQ 12:41 → EDBEDREQTM 12:41 → ENRESERV 15:36
PROVIDERS: ADMIT Emergency Medicine; ATTEND Emergency Medicine
DX: A41.51 Sepsis due to Escherichia coli [E. coli] (principal); E87.1 Hypo-osmolality and hyponatremia; E87.2 Acidosis; N39.0 Urinary tract infection, site not specified; R65.20 Severe sepsis without septic shock; N70.93 Salpingitis and oophoritis, unspecified; E86.0 Dehydration; E87.6 Hypokalemia; I95.9 Hypotension, unspecified; N83.209 Unspecified ovarian cyst, unspecified side; K52.9 Noninfective gastroenteritis and colitis, unspecified; R31.9 Hematuria, unspecified; I10 Essential (primary) hypertension; K76.0 Fatty (change of) liver, not elsewhere classified; Z90.49 Acquired absence of other specified parts of digestive tract; Z88.6 Allergy status to analgesic agent; Z98.891 History of uterine scar from previous surgery; Z79.899 Other long term (current) drug therapy
CPT/HCPCS: 36415; 71045; 74177; 76830; 76856; 80048; 83605; 83735; 84132; 84145; 84484; 84703; 87077; 87186; 93005; 96365; 96375; 99291; J1200; J1885; J2405; J2543; J3475; J3480; J3490; J7030; J7060; Q9967

== ENCOUNTER → 2018-10-01 | Outpatient (CLI) | payer BC ==
[~2018-10-01] MED LIST changes: +ATEN-42 PO
[2018-10-01 12:07] LABS: BASOPHILS % 0.9 % (0.0-2.0); EOSINOPHILS % 0.9 % (0.0-5.0); HEMATOCRIT. 35.5 % (36.0-48.0); HEMOGLOBIN. 12.1 g/dL (12.0-16.0); LYMPHOCYTES % 28.7 % (20.0-50.0); MEAN CORPUSCULAR HEMOGLOBIN 30.5 pg (28.0-32.0); MEAN CORPUSCULAR VOLUME 89.2 fL (81.0-99.0); MEAN PLATELET VOLUME 6.8 fl (7.4-10.4); MONOCYTES % 8.5 % (2.0-8.0); PLATELET 359 x1000/uL (130-400); RED BLOOD CELL COUNT 3.98 mill/uL (4.2-5.4); RED CELL DISTRIBUTION WIDTH 14.3 % (11.6-14.6)
[2018-10-01 12:43] LABS: CHLORIDE 104 mEq/L (98-107)
[2018-10-01 12:55] LABS: LDL CHOLESTEROL 125 mg/dL (5-100)
[2018-10-01 12:56] LABS: TOTAL IRON BINDING CAPACITY 309 ug/dL (250-450)
[2018-10-01 12:59] LABS: HDL CHOLESTEROL 33 mg/dL (40-59)
== END | disposition home or self-care (01) ==
LOC: LAB 11:26
PROVIDERS: ATTEND Family Medicine Adult Medicine
DX: E11.9 Type 2 diabetes mellitus without complications (principal); D64.9 Anemia, unspecified
CPT/HCPCS: 36415; 80061; 82306; 82607; 82728; 82746; 83036; 83540; 83550; 84439; 84443; 84481

== ENCOUNTER 2018-10-18 07:48 | Emergency (ER) | payer BC ==
[~2018-10-18] VITALS: Ht 149.9 cm; Wt 68.0 kg
[~2018-10-18 07:48] MED LIST changes: -ATEN-42 PO
[2018-10-18 11:55] LABS: CLARITY URINE CLEAR (CLEAR); COLOR URINE DARK YELLOW (YELLOW); KETONES URINE TRACE (NEGATIVE); LEUKOCYTE ESTERASE URINE NEGATIVE (NEGATIVE); NITRITE URINE NEGATIVE (NEGATIVE); OCCULT BLOOD URINE 2+ (NEGATIVE); PH URINE 5.5 (4.5-8.0); PROTEIN URINE 2+ (NEGATIVE); SPECIFIC GRAVITY URINE 1.034 (1.005-1.030)
[2018-10-18 13:00] VITALS: BP 152/80
== END 2018-10-18 13:00 | disposition home or self-care (01) ==
LOC: ER 09:23
DX: B34.9 Viral infection, unspecified (principal); I10 Essential (primary) hypertension; D64.9 Anemia, unspecified; Z90.49 Acquired absence of other specified parts of digestive tract; Z98.890 Other specified postprocedural states; Z88.6 Allergy status to analgesic agent; Z88.5 Allergy status to narcotic agent; Z79.899 Other long term (current) drug therapy
CPT/HCPCS: 81025; 87804; 99283

== ENCOUNTER → 2018-11-23 | Outpatient (CLI) | payer BC ==
[~2018-11-23] MED LIST changes: +ATEN-42 PO
[2018-11-23 12:49] LABS: BASOPHILS % 0.7 % (0.0-2.0); EOSINOPHILS % 0.8 % (0.0-5.0); HEMATOCRIT. 38.2 % (36.0-48.0); HEMOGLOBIN. 12.5 g/dL (12.0-16.0); LYMPHOCYTES % 30.3 % (20.0-50.0); MEAN CORPUSCULAR HEMOGLOBIN 28.9 pg (28.0-32.0); MEAN PLATELET VOLUME 6.3 fl (7.4-10.4); MONOCYTES % 7.6 % (2.0-8.0); NEUTROPHILS % 60.6 % (40.0-76.0); PLATELET 514 x1000/uL (130-400); RED BLOOD CELL COUNT 4.34 mill/uL (4.2-5.4); RED CELL DISTRIBUTION WIDTH 14.5 % (11.6-14.6)
[2018-11-23 12:55] LABS: CHLORIDE 106 mEq/L (98-107)
[2018-11-23 12:57] LABS: PARTIAL THROMBOPLASTIN TIME 29.4 sec (23.4-31.0)
[2018-11-23 13:02] LABS: LDL CHOLESTEROL 136 mg/dL (5-100)
[2018-11-23 13:03] LABS: HDL CHOLESTEROL 37 mg/dL (40-59)
[2018-11-23 13:04] LABS: T4 FREE 1.01 ng/dL (0.76-1.46)
== END | disposition home or self-care (01) ==
LOC: RAD 12:11
PROVIDERS: ATTEND Pathology Anatomic Pathology & Clinical Pathology
DX: Z01.818 Encounter for other preprocedural examination (principal)
CPT/HCPCS: 36415; 71045; 80061; 83036; 84439; 84443

== ENCOUNTER 2018-12-02 05:36 | Inpatient (IN) | payer BC, OTHER ==
[~2018-12-02] VITALS: Ht 149.9 cm; Wt 64.9 kg
[~2018-12-02 05:36] MED LIST changes: -ATEN-42 PO
[2018-12-02] MEDS ORDERED: LACTATED RINGERS 1,000 ML IV SCH (06:00)
[2018-12-02 06:57] LABS: UCG SCREEN NEGATIVE
[2018-12-02 06:59] LABS: CLARITY URINE CLEAR (CLEAR); COLOR URINE YELLOW (YELLOW); KETONES URINE NEGATIVE (NEGATIVE); NITRITE URINE NEGATIVE (NEGATIVE); OCCULT BLOOD URINE 2+ (NEGATIVE); PROTEIN URINE TRACE (NEGATIVE); SPECIFIC GRAVITY URINE 1.023 (1.005-1.030); UROBILINOGEN URINE 0.2 E.U./dL (0.2-1.0)
[2018-12-02 07:00] LABS: LEUKOCYTE ESTERASE URINE NEGATIVE (NEGATIVE)
[2018-12-02] MEDS ORDERED: VASOPRESSIN 20 UNIT/ML 1ML ONE (07:00)
[2018-12-02] MEDS ORDERED: PROPOFOL 200MG/20ML VIAL IV ONE (07:25)
[2018-12-02] MEDS ORDERED: ROCURONIUM BROMIDE 10MG/ML VIAL 5ML IV ONE (07:25)
[2018-12-02] MEDS ORDERED: MIDAZOLAM HCL 2 MG/2 ML VIAL ONE (07:25)
[2018-12-02] MEDS ORDERED: FENTANYL CITRATE/PF 50MCG/ML 5ML VIAL ONE (07:25)
[2018-12-02] MEDS ORDERED: ATEN-42 PO (07:26)
[2018-12-02] MEDS ORDERED: MEPERIDINE HCL/PF 100MG/ML CPJ ONE (07:40)
[2018-12-02] MEDS ORDERED: EPHEDRINE SULFATE 50MG/ML VIAL ONE (08:13)
[2018-12-02] MEDS ORDERED: ONDANSETRON HCL 4MG/2ML INJ IV PRN (09:00)
[2018-12-02] MEDS ORDERED: MEPERIDINE HCL/PF 25MG/ML CPJ IV PRN (09:00)
[2018-12-02] MEDS ORDERED: LIDOCAINE HCL/PF 1% 10 MG/ML 5ML VIAL ONE (09:05)
[2018-12-02] MEDS ORDERED: BACITRACIN 50,000 UNITS/VIAL ONE ×2 (09:14→09:44)
[2018-12-02] MEDS ORDERED: NORMAL SALINE 0.9% 10 ML SYR ONE (09:44)
[2018-12-02] MEDS ORDERED: GLYCOPYRROLATE 0.2 MG/ML 2ML VIAL ONE ×2 (10:12→10:28)
[2018-12-02] MEDS: FENTANYL CITRATE/PF 50MCG/ML 2ML VIAL IV PRN ×4 (11:08→12:28)
[2018-12-02] MEDS: KETOROLAC 30MG/ML VIAL IV NR ×2 (11:28→17:26)
[2018-12-02] MEDS ORDERED: IBUPROFEN 600MG TABLET PO PRN (14:30)
[2018-12-02 16:00] VITALS: BP 118/61
[2018-12-02] MEDS: DOCUSATE SODIUM 100MG CAPSULE PO SCH (17:00)
[2018-12-02] MEDS: DEXT 5%/LACTATED RINGERS 1,000 ML IV SCH ×2 (17:14→21:34)
[2018-12-02] MEDS: CEFAZOLIN 2,000 MG in DEXT 5% WATER 100 ML IV SCH (17:26)
[2018-12-02] MEDS: DIPHENHYDRAMINE 50MG/ML VIAL IV PRN (17:27)
[2018-12-02 17:45] VITALS: BP 101/65
[2018-12-02 20:00] VITALS: BP 119/62
[2018-12-03] VITALS (7 sets, daily range): BP systolic 117–145; BP diastolic 57–74
[2018-12-03] MEDS: KETOROLAC 30MG/ML VIAL IV PRN ×4 (00:30→19:59)
[2018-12-03] MEDS: CEFAZOLIN 2,000 MG in DEXT 5% WATER 100 ML IV SCH ×2 (00:48→09:16)
[2018-12-03] MEDS: DIPHENHYDRAMINE 50MG/ML VIAL IV PRN ×2 (01:14→16:29)
[2018-12-03] MEDS: DOCUSATE SODIUM 100MG CAPSULE PO SCH ×2 (09:00→16:33)
[2018-12-03 09:44] LABS: BASOPHILS % 0.6 % (0.0-2.0); EOSINOPHILS % 0.1 % (0.0-5.0); HEMATOCRIT. 32.2 % (36.0-48.0); HEMOGLOBIN. 10.8 g/dL (12.0-16.0); LYMPHOCYTES % 12.8 % (20.0-50.0); MEAN CORPUSCULAR HEMOGLOBIN 29.4 pg (28.0-32.0); MEAN CORPUSCULAR VOLUME 87.4 fL (81.0-99.0); MEAN PLATELET VOLUME 6.7 fl (7.4-10.4); MONOCYTES % 7.8 % (2.0-8.0); NEUTROPHILS % 78.7 % (40.0-76.0); PLATELET 323 x1000/uL (130-400); RED BLOOD CELL COUNT 3.68 mill/uL (4.2-5.4); RED CELL DISTRIBUTION WIDTH 14.7 % (11.6-14.6)
[2018-12-03 09:55] LABS: CHLORIDE 104 mEq/L (98-107)
[2018-12-03] MEDS: DEXT 5%/LACTATED RINGERS 1,000 ML IV SCH ×2 (15:35→22:32)
[2018-12-04] MEDS: DIPHENHYDRAMINE 50MG/ML VIAL IV PRN (00:28)
[2018-12-04] MEDS: KETOROLAC 30MG/ML VIAL IV PRN ×2 (01:32→08:40)
[2018-12-04 04:00] VITALS: BP 121/78
[2018-12-04 08:00] VITALS: BP 135/73
[2018-12-04] MEDS: DOCUSATE SODIUM 100MG CAPSULE PO SCH ×2 (08:40→16:01)
[2018-12-04] MEDS ORDERED: ACETAMINOPHEN 325MG TABLET PO PRN (10:30)
[2018-12-04] MEDS: DEXT 5%/LACTATED RINGERS 1,000 ML IV SCH (11:40)
[2018-12-04 12:00] VITALS: BP 134/54
[2018-12-04 16:00] VITALS: BP 131/65
[2018-12-04] MEDS ORDERED: ONDANSETRON HCL 4MG/2ML INJ IV PRN (18:20)
[2018-12-04 20:00] VITALS: BP 124/63
[2018-12-04 21:44] LABS: CHLORIDE 105 mEq/L (98-107)
[2018-12-04 21:45] LABS: HEMATOCRIT. 29.1 % (36.0-48.0); HEMOGLOBIN. 9.8 g/dL (12.0-16.0); MEAN CORPUSCULAR HEMOGLOBIN 29.2 pg (28.0-32.0); MEAN CORPUSCULAR VOLUME 87.1 fL (81.0-99.0); PLATELET 319 x1000/uL (130-400); RED BLOOD CELL COUNT 3.34 mill/uL (4.2-5.4); RED CELL DISTRIBUTION WIDTH 14.4 % (11.6-14.6)
[2018-12-04 23:35] LABS: PLATELET ESTIMATE NORMAL
[2018-12-05] VITALS: BP 117/62
[2018-12-05] MEDS: DIPHENHYDRAMINE 50MG/ML VIAL IV PRN (00:49)
[2018-12-05 04:00] VITALS: BP 152/74
[2018-12-05] MEDS: DEXT 5%/LACTATED RINGERS 1,000 ML IV SCH ×2 (05:59→12:30)
[2018-12-05 08:00] VITALS: BP 140/75
[2018-12-05] MEDS ORDERED: POTASSIUM CHLORIDE 20MEQ TABLET SR PO SCH (08:00)
[2018-12-05] MEDS: DOCUSATE SODIUM 100MG CAPSULE PO SCH (08:43)
[2018-12-05 10:54] VITALS: BP 128/69
[2018-12-05 12:12] VITALS: BP 131/75
== END 2018-12-05 15:00 | disposition home or self-care (01) | DRG 742 ==
LOC: OR 05:36 → 6EST 05:37
PROVIDERS: ADMIT Obstetrics & Gynecology Obstetrics; ATTEND Obstetrics & Gynecology Obstetrics
PROC: 0UT90ZZ Resection of Uterus, Open Approach (ICD-10-PCS; principal; 2018-12-02)
PROC: 0DNU0ZZ Release Omentum, Open Approach (ICD-10-PCS; 2018-12-02)
PROC: 0UNF0ZZ Release Cul-de-sac, Open Approach (ICD-10-PCS; 2018-12-02)
PROC: 0UT20ZZ Resection of Bilateral Ovaries, Open Approach (ICD-10-PCS; 2018-12-02)
PROC: 0UT70ZZ Resection of Bilateral Fallopian Tubes, Open Approach (ICD-10-PCS; 2018-12-02)
DX: N70.93 Salpingitis and oophoritis, unspecified (principal); R65.10 Systemic inflammatory response syndrome (SIRS) of non-infectious origin without acute organ dysfunction; I10 Essential (primary) hypertension; N73.6 Female pelvic peritoneal adhesions (postinfective); E78.5 Hyperlipidemia, unspecified; G89.29 Other chronic pain; Z90.49 Acquired absence of other specified parts of digestive tract
CPT/HCPCS: 36415; 80048; 81025; 85007; 85027; 86850; 86900; 86920; 87070; 87077; 87186; 88305; 88307; J0690; J1200; J1885; J2175; J2250; J2405; J2704; J3010; J3490; J7060; J7121

== ENCOUNTER → 2019-01-14 | Outpatient (CLI) | payer BC ==
[~2019-01-14] MED LIST changes: +ATEN-42 PO
[2019-01-14 14:21] LABS: CHLORIDE 107 mEq/L (98-107)
[2019-01-14 14:32] LABS: HDL CHOLESTEROL 33 mg/dL (40-59)
[2019-01-14 14:33] LABS: LDL CHOLESTEROL 143 mg/dL (5-100)
[2019-01-14 14:35] LABS: TOTAL IRON BINDING CAPACITY 315 ug/dL (250-450)
[2019-01-14 14:49] LABS: FOLIC ACID (FOLATE) SERUM 6.8 ng/mL (>5.38)
== END | disposition home or self-care (01) ==
LOC: LAB 13:14
DX: D50.9 Iron deficiency anemia, unspecified (principal); D64.9 Anemia, unspecified; E11.8 Type 2 diabetes mellitus with unspecified complications; Z79.899 Other long term (current) drug therapy
CPT/HCPCS: 36415; 80061; 82306; 82607; 82728; 82746; 83036; 83540; 83550; 84439; 84443; 84481

== ENCOUNTER → 2019-04-27 | Outpatient (CLI) | payer BC | END | disposition home or self-care (01) | LOC: MAMMO 07:36 | PROVIDERS: ATTEND Obstetrics & Gynecology Obstetrics | DX: Z12.31 Encounter for screening mammogram for malignant neoplasm of breast (principal) | CPT/HCPCS: 77067 ==

== ENCOUNTER → 2022-10-03 | Outpatient (CLI) | payer BC ==
[2022-10-03 08:07] LABS: BASOPHILS % 0.8 % (0.0-2.0); EOSINOPHILS % 1.2 % (0.0-5.0); HEMATOCRIT. 40.8 % (36.0-48.0); HEMOGLOBIN. 13.9 g/dL (12.0-16.0); LYMPHOCYTES % 34.6 % (20.0-50.0); MEAN CORPUSCULAR HEMOGLOBIN 29.7 pg (28.0-32.0); MEAN CORPUSCULAR VOLUME 87.3 fL (81.0-99.0); MEAN PLATELET VOLUME 7.3 fl (7.4-10.4); MONOCYTES % 5.2 % (2.0-8.0); NEUTROPHILS % 58.2 % (40.0-76.0); PLATELET 381 x1000/uL (130-400); RED BLOOD CELL COUNT 4.67 mill/uL (4.2-5.4); RED CELL DISTRIBUTION WIDTH 13.9 % (11.6-14.6)
[2022-10-03 08:16] LABS: CHLORIDE 101 mEq/L (98-107)
[2022-10-03 08:36] LABS: HDL CHOLESTEROL 42 mg/dL (40-59); LDL CHOLESTEROL 169 mg/dL (5-100); T4 FREE 1.02 ng/dL (0.76-1.46); TOTAL IRON BINDING CAPACITY 372 ug/dL (250-450)
[2022-10-03 09:28] LABS: CLARITY URINE CLEAR (CLEAR); COLOR URINE DARK YELLOW (YELLOW); KETONES URINE NEGATIVE (NEGATIVE); LEUKOCYTE ESTERASE URINE NEGATIVE (NEGATIVE); NITRITE URINE NEGATIVE (NEGATIVE); OCCULT BLOOD URINE 2+ (NEGATIVE); PH URINE 5.5 (4.5-8.0); PROTEIN URINE 2+ (NEGATIVE); SPECIFIC GRAVITY URINE 1.023 (1.005-1.030)
[2022-10-04 05:26] LABS: FOLIC ACID (FOLATE) SERUM 14.8 ng/mL (>5.38)
== END | disposition home or self-care (01) ==
LOC: MAMMO 07:03
PROVIDERS: ATTEND Family Medicine Adult Medicine
DX: Z12.31 Encounter for screening mammogram for malignant neoplasm of breast (principal); I10 Essential (primary) hypertension; D50.9 Iron deficiency anemia, unspecified; E55.9 Vitamin D deficiency, unspecified; E78.5 Hyperlipidemia, unspecified
CPT/HCPCS: 36415; 77067; 80053; 80061; 81003; 82306; 82607; 82728; 82746; 83036; 83540; 83550; 84439; 84443; 84481; 85025; 85651

== ENCOUNTER → 2022-10-17 | Outpatient (CLI) | payer OTHER | END | disposition home or self-care (01) | LOC: MRI 06:57 | PROVIDERS: ATTEND Family Medicine Adult Medicine | DX: S51.011A Laceration without foreign body of right elbow, initial encounter (principal); M25.521 Pain in right elbow; X58.XXXA Exposure to other specified factors, initial encounter; Y93.89 Activity, other specified; Y92.89 Other specified places as the place of occurrence of the external cause; Y99.8 Other external cause status | CPT/HCPCS: 73221 ==

== ENCOUNTER → 2022-10-18 | Outpatient (CLI) | payer BC ==
[2022-10-18 09:36] LABS: CHLORIDE 109 mEq/L (98-107)
== END | disposition home or self-care (01) ==
LOC: LAB 08:51
PROVIDERS: ATTEND Family Medicine Adult Medicine
DX: Z00.00 Encounter for general adult medical examination without abnormal findings (principal)
CPT/HCPCS: 36415; 80048

== ENCOUNTER → 2024-01-02 | Outpatient (CLI) | payer BC ==
[2024-01-02 09:20] LABS: BASOPHILS % 1.1 % (0.0-2.0); EOSINOPHILS % 0.8 % (0.0-5.0); HEMATOCRIT. 42.3 % (36.0-48.0); HEMOGLOBIN. 14.5 g/dL (12.0-16.0); LYMPHOCYTES % 32.2 % (20.0-50.0); MEAN CORPUSCULAR HEMOGLOBIN 29.8 pg (28.0-32.0); MEAN CORPUSCULAR HGB CONC 34.3 g/dL (31.0-37.0); MEAN CORPUSCULAR VOLUME 86.8 fL (81.0-99.0); MEAN PLATELET VOLUME 7.1 fl (7.4-10.4); MONOCYTES % 6.2 % (2.0-8.0); NEUTROPHILS % 59.7 % (40.0-76.0); PLATELET 393 x1000/uL (130-400); RED BLOOD CELL COUNT 4.87 mill/uL (4.2-5.4); RED CELL DISTRIBUTION WIDTH 13.4 % (11.6-14.6); WHITE BLOOD COUNT 8.9 x1000/uL (4.5-11.0)
[2024-01-02 09:47] LABS: ALANINE AMINOTRANSFERASE 35 IU/L (10-49); ASPARTATE AMINOTRANSFERASE 33 IU/L (<34); BILIRUBIN TOTAL 0.8 mg/dL (0.1-1.0); CALCIUM 9.5 mg/dL (8.7-10.4); CARBON DIOXIDE 27 mEq/L (21-32); CHLORIDE 103 mEq/L (98-107); CHOLESTEROL 269 mg/dL (<200); CREATININE 0.8 mg/dL (0.6-1.0); GLUCOSE 105 mg/dL (70-105); HDL CHOLESTEROL 44 mg/dL (>65); IRON 99 ug/dL (50-170); LDL CHOLESTEROL 180 mg/dL (5-100); POTASSIUM 3.4 mEq/L (3.5-5.1); PROTEIN TOTAL 8.7 g/dL (6.0-8.3); SODIUM 142 mEq/L (136-145); T4 FREE 1.27 ng/dL (0.89-1.76); THYROID STIMULATING HORMONE 1.72 uIU/mL (0.55-4.78); TOTAL IRON BINDING CAPACITY 342 ug/dl (250-425); TRIGLYCERIDE 459 mg/dL (0-150); UREA NITROGEN BLOOD 8 mg/dL (9-23)
[2024-01-02 14:23] LABS: FERRITIN 223 ng/mL (10-291); FOLIC ACID (FOLATE) SERUM 18.28 ng/mL (>5.38); VITAMIN B12 SERUM 531 pg/mL (211-911)
== END | disposition home or self-care (01) ==
LOC: LAB 08:53
PROVIDERS: ATTEND Family Medicine Adult Medicine
DX: E11.8 Type 2 diabetes mellitus with unspecified complications (principal); E55.9 Vitamin D deficiency, unspecified; E78.5 Hyperlipidemia, unspecified; D50.9 Iron deficiency anemia, unspecified
CPT/HCPCS: 36415; 80053; 80061; 82306; 82607; 82728; 82746; 83036; 83540; 83550; 84439; 84443; 84481; 85025